=== PATIENT | male | born 1960 | race Caucasian/White ===

== ENCOUNTER 2023-03-15 10:15 | Outpatient (RCR) | payer BC, SELFPAY | END 2023-03-15 23:59 | disposition home or self-care (01) | LOC: RST 10:15 | PROVIDERS: ATTENDING PHYSICIAN Family Medicine | DX: I69.320 Aphasia following cerebral infarction (principal); I69.398 Other sequelae of cerebral infarction; Z74.01 Bed confinement status; I67.9 Cerebrovascular disease, unspecified | CPT/HCPCS: 92507; 92523; 97110; 97112; 97162; 97167; 97530; 97535 ==

== ENCOUNTER → 2023-03-28 12:32 | Outpatient (REF) | payer BC, SELFPAY | LOC: REG 12:32 | PROVIDERS: ATTENDING PHYSICIAN Nurse Practitioner Family; FAMILY PHYSICIAN Family Medicine; REFERRING PHYSICIAN Internal Medicine Cardiovascular Disease | DX: I63.9 Cerebral infarction, unspecified (principal) | CPT/HCPCS: 36415 ==

== ENCOUNTER 2023-04-14 12:54 | Outpatient (RCR) | payer BC, SELFPAY | END 2023-04-14 23:59 | disposition home or self-care (01) | LOC: RST 12:54 | PROVIDERS: ATTENDING PHYSICIAN Family Medicine | DX: I69.320 Aphasia following cerebral infarction (principal); I69.398 Other sequelae of cerebral infarction; Z73.6 Limitation of activities due to disability | CPT/HCPCS: 92507; 97110; 97112; 97530; 97535 ==

== ENCOUNTER 2023-05-11 14:20 | Outpatient (RCR) | payer BC, SELFPAY | END 2023-05-11 23:59 | disposition home or self-care (01) | LOC: RST 14:20 | PROVIDERS: ATTENDING PHYSICIAN Family Medicine | DX: I69.320 Aphasia following cerebral infarction (principal); I69.351 Hemiplegia and hemiparesis following cerebral infarction affecting right dominant side; Z73.6 Limitation of activities due to disability | CPT/HCPCS: 92507; 97110; 97530; 97535 ==

== ENCOUNTER → 2023-06-11 07:36 | Outpatient (REF) | payer BC, SELFPAY ==
[2023-06-11 08:38] LABS: % Basophils 0.9 % (0-2); % Eosinophils 2.2 % (0-6); % Immature Granulocytes 0.2 % (0-0.5); % Lymphocytes 26.1 % (20.5-51.1); % Monocytes 15.5 % (1.7-9.3); % Neutrophils 55.1 % (42.2-75.2); Absolute Eosinophils 0.1 10^3/uL (0-0.7); Absolute Lymphocytes 1.2 10^3/uL (1.2-3.4); Absolute Monocytes 0.7 10^3/uL (0.1-0.6); Absolute Neutrophils 2.5 10^3/uL (1.4-6.5); Hematocrit 42.1 % (39.0-52.0); Hemoglobin 14.5 g/dL (13.0-18.0); Mean Corp Hgb Conc. 34.4 g/dL (33.0-37.0); Mean Corpuscular Hgb 30.9 pg (27.0-31.0); Mean Corpuscular Volume 89.6 fL (80.0-94.0); Mean Platelet Volume 9.3 fL (7.4-10.4); Nucleated Red Blood Cells % 0 % (-); Platelet Count 198 10^3/uL (130-400); Red Cell Dist. Width 14.6 % (11.5-14.5); White Blood Cell Count 4.5 10^3/uL (4.8-10.8)
[2023-06-11 08:52] LABS: ALT (SGPT) 65 U/L (0-50); AST (SGOT) 37 U/L (17-59); Alkaline Phosphatase 78 U/L (38-126); Blood Urea Nitrogen 19 mg/dl (9-20); Calcium 9.6 mg/dl (8.4-10.2); Carbon Dioxide 30 mmol/L (22-30); Chloride 106 mmol/L (98-107); Glucose 101 mg/dl (70-99); Potassium 4.4 mmol/L (3.5-5.1); Sodium 138 mmol/L (135-145); Total Bilirubin 0.6 mg/dl (0.2-1.3); Total Protein 6.6 g/dl (6.3-8.2); eGFR > 60.00
== END ==
LOC: REG 07:36
PROVIDERS: ATTENDING PHYSICIAN Nurse Practitioner Family; FAMILY PHYSICIAN Family Medicine; REFERRING PHYSICIAN Internal Medicine Cardiovascular Disease
DX: I63.512 Cerebral infarction due to unspecified occlusion or stenosis of left middle cerebral artery (principal)
CPT/HCPCS: 36415; 80053; 85025

== ENCOUNTER 2023-06-13 09:53 | Outpatient (RCR) | payer BC, SELFPAY | END 2023-06-13 23:59 | disposition home or self-care (01) | LOC: RST 09:53 | PROVIDERS: ATTENDING PHYSICIAN Family Medicine | DX: I69.320 Aphasia following cerebral infarction (principal); I69.898 Other sequelae of other cerebrovascular disease; R53.1 Weakness; R25.1 Tremor, unspecified | CPT/HCPCS: 92507; 97110; 97530; 97535; 97537 ==

== ENCOUNTER → 2023-07-14 08:06 | Outpatient (REF) | payer BC, SELFPAY | LOC: RCS 08:06 | PROVIDERS: ATTENDING PHYSICIAN Internal Medicine Cardiovascular Disease; FAMILY PHYSICIAN Family Medicine | DX: I42.9 Cardiomyopathy, unspecified (principal) | CPT/HCPCS: 93306 ==

== ENCOUNTER 2023-07-15 09:51 | Outpatient (RCR) | payer BC, SELFPAY | END 2023-07-15 23:59 | disposition home or self-care (01) | LOC: RST 09:51 | PROVIDERS: ATTENDING PHYSICIAN Family Medicine | DX: I69.320 Aphasia following cerebral infarction (principal); Z73.6 Limitation of activities due to disability | CPT/HCPCS: 92507; 97110; 97161; 97530; 97535 ==

== ENCOUNTER 2023-07-28 09:51 | Outpatient (RCR) | payer OTHER, SELFPAY | END 2023-07-28 23:59 | disposition home or self-care (01) | LOC: RPT 09:51 | PROVIDERS: ATTENDING PHYSICIAN Nurse Practitioner Family; FAMILY PHYSICIAN Family Medicine | DX: I69.398 Other sequelae of cerebral infarction (principal); Z73.6 Limitation of activities due to disability | CPT/HCPCS: 97110; 97112 ==

== ENCOUNTER 2023-08-11 09:18 | Outpatient (RCR) | payer OTHER, SELFPAY | END 2023-08-11 23:59 | disposition home or self-care (01) | LOC: RST 09:18 | PROVIDERS: ATTENDING PHYSICIAN Family Medicine | DX: I69.320 Aphasia following cerebral infarction (principal); Z73.6 Limitation of activities due to disability | CPT/HCPCS: 92507; 92523; 97167; 97530; 97535 ==

== ENCOUNTER 2023-09-12 09:38 | Outpatient (RCR) | payer OTHER, SELFPAY | END 2023-09-12 23:59 | disposition home or self-care (01) | LOC: RST 09:38 | PROVIDERS: ATTENDING PHYSICIAN Family Medicine | DX: I69.320 Aphasia following cerebral infarction (principal); Z73.6 Limitation of activities due to disability | CPT/HCPCS: 92507; 97530; 97535; 97537 ==

== ENCOUNTER 2023-10-13 10:23 | Outpatient (RCR) | payer OTHER, SELFPAY | END 2023-10-13 23:59 | disposition home or self-care (01) | LOC: RST 10:23 | PROVIDERS: ATTENDING PHYSICIAN Family Medicine | DX: I69.320 Aphasia following cerebral infarction (principal); Z73.6 Limitation of activities due to disability | CPT/HCPCS: 92507; 97110; 97530; 97537 ==

== ENCOUNTER 2023-11-10 06:52 | Outpatient (RCR) | payer OTHER, SELFPAY | END 2023-11-10 23:59 | disposition home or self-care (01) | LOC: RST 06:52 | PROVIDERS: ATTENDING PHYSICIAN Family Medicine | DX: I69.398 Other sequelae of cerebral infarction (principal); Z73.6 Limitation of activities due to disability; I69.320 Aphasia following cerebral infarction | CPT/HCPCS: 92507; 97530; 97535 ==

== ENCOUNTER 2023-12-15 11:00 | Outpatient (RCR) | payer OTHER, SELFPAY | END 2023-12-15 23:59 | disposition home or self-care (01) | LOC: RST 11:00 | PROVIDERS: ATTENDING PHYSICIAN Family Medicine | DX: I69.320 Aphasia following cerebral infarction (principal); Z73.6 Limitation of activities due to disability | CPT/HCPCS: 92507; 97530; 97537 ==

== ENCOUNTER 2023-12-20 07:55 | Outpatient (RCR) | payer OTHER, SELFPAY | END 2023-12-20 23:59 | disposition home or self-care (01) | LOC: RPT 07:55 | PROVIDERS: ATTENDING PHYSICIAN Nurse Practitioner Family; FAMILY PHYSICIAN Family Medicine | DX: I69.398 Other sequelae of cerebral infarction (principal); R53.1 Weakness ==

== ENCOUNTER 2024-01-11 07:54 | Outpatient (RCR) | payer OTHER, SELFPAY | END 2024-01-11 23:59 | disposition home or self-care (01) | LOC: RST 07:54 | PROVIDERS: ATTENDING PHYSICIAN Family Medicine | DX: I69.320 Aphasia following cerebral infarction (principal); Z73.6 Limitation of activities due to disability | CPT/HCPCS: 92507; 97530 ==

== ENCOUNTER 2024-02-14 06:29 | Outpatient (RCR) | payer OTHER, SELFPAY | END 2024-02-14 23:59 | disposition home or self-care (01) | LOC: RST 06:29 | PROVIDERS: ATTENDING PHYSICIAN Family Medicine | DX: I69.320 Aphasia following cerebral infarction (principal); Z73.6 Limitation of activities due to disability; I69.398 Other sequelae of cerebral infarction | CPT/HCPCS: 92507; 97530; 97535 ==

== ENCOUNTER 2024-03-15 07:12 | Outpatient (RCR) | payer OTHER, SELFPAY | END 2024-03-15 23:59 | disposition home or self-care (01) | LOC: RST 07:12 | PROVIDERS: ATTENDING PHYSICIAN Family Medicine | DX: I69.320 Aphasia following cerebral infarction (principal); Z73.6 Limitation of activities due to disability | CPT/HCPCS: 92507; 97530; 97535 ==

== ENCOUNTER 2024-04-12 06:14 | Outpatient (RCR) | payer OTHER, SELFPAY | END 2024-04-12 23:59 | disposition home or self-care (01) | LOC: RST 06:14 | PROVIDERS: ATTENDING PHYSICIAN Family Medicine | DX: I69.320 Aphasia following cerebral infarction (principal); Z73.6 Limitation of activities due to disability; I69.390 Apraxia following cerebral infarction | CPT/HCPCS: 92507; 97530 ==

== ENCOUNTER 2024-05-07 07:16 | Outpatient (RCR) | payer OTHER, SELFPAY | END 2024-05-07 23:59 | disposition home or self-care (01) | LOC: RST 07:16 | PROVIDERS: ATTENDING PHYSICIAN Family Medicine | DX: I69.320 Aphasia following cerebral infarction (principal); Z73.6 Limitation of activities due to disability; I69.390 Apraxia following cerebral infarction | CPT/HCPCS: 92507; 97530 ==

== ENCOUNTER 2024-06-07 06:44 | Outpatient (RCR) | payer OTHER, SELFPAY | END 2024-06-07 23:59 | disposition home or self-care (01) | LOC: RST 06:44 | PROVIDERS: ATTENDING PHYSICIAN Family Medicine | DX: I69.320 Aphasia following cerebral infarction (principal); I69.390 Apraxia following cerebral infarction; Z73.6 Limitation of activities due to disability | CPT/HCPCS: 92507 ==

== ENCOUNTER 2024-07-12 07:15 | Outpatient (RCR) | payer OTHER, SELFPAY | END 2024-07-12 23:59 | disposition home or self-care (01) | LOC: RST 07:15 | PROVIDERS: ATTENDING PHYSICIAN Family Medicine | DX: I69.320 Aphasia following cerebral infarction (principal); I69.390 Apraxia following cerebral infarction; Z73.6 Limitation of activities due to disability | CPT/HCPCS: 92507 ==

== ENCOUNTER 2024-08-09 08:06 | Outpatient (RCR) | payer OTHER, SELFPAY | END 2024-08-09 23:59 | disposition home or self-care (01) | LOC: RST 08:06 | PROVIDERS: ATTENDING PHYSICIAN Family Medicine | DX: I69.320 Aphasia following cerebral infarction (principal); I69.390 Apraxia following cerebral infarction; Z73.6 Limitation of activities due to disability | CPT/HCPCS: 92507 ==

== ENCOUNTER 2024-09-10 10:12 | Outpatient (RCR) | payer OTHER, SELFPAY | END 2024-09-10 23:59 | disposition home or self-care (01) | LOC: RST 10:12 | PROVIDERS: ATTENDING PHYSICIAN Family Medicine | DX: I69.320 Aphasia following cerebral infarction (principal); I69.390 Apraxia following cerebral infarction; Z73.6 Limitation of activities due to disability | CPT/HCPCS: 92507 ==

== ENCOUNTER 2024-10-02 09:26 | Outpatient (RCR) | payer OTHER, SELFPAY | END 2024-10-02 23:59 | disposition home or self-care (01) | LOC: RST 09:26 | PROVIDERS: ATTENDING PHYSICIAN Family Medicine | DX: I69.320 Aphasia following cerebral infarction (principal); I69.390 Apraxia following cerebral infarction; Z73.6 Limitation of activities due to disability | CPT/HCPCS: 92507 ==

== ENCOUNTER 2024-11-08 09:11 | Outpatient (RCR) | payer OTHER, SELFPAY | END 2024-11-08 23:59 | disposition home or self-care (01) | LOC: RST 09:11 | PROVIDERS: ATTENDING PHYSICIAN Family Medicine | DX: I69.320 Aphasia following cerebral infarction (principal); I69.390 Apraxia following cerebral infarction; Z73.6 Limitation of activities due to disability | CPT/HCPCS: 92507 ==

== ENCOUNTER 2024-12-05 06:52 | Outpatient (RCR) | payer OTHER, SELFPAY | END 2024-12-05 23:59 | disposition home or self-care (01) | LOC: RST 06:52 | PROVIDERS: ATTENDING PHYSICIAN Family Medicine | DX: I69.320 Aphasia following cerebral infarction (principal); I69.390 Apraxia following cerebral infarction; Z73.6 Limitation of activities due to disability | CPT/HCPCS: 92507 ==

== ENCOUNTER 2025-01-02 06:52 | Outpatient (RCR) | payer OTHER, SELFPAY | END 2025-01-02 23:59 | disposition home or self-care (01) | LOC: RST 06:52 | PROVIDERS: ATTENDING PHYSICIAN Family Medicine | DX: I69.320 Aphasia following cerebral infarction (principal); I69.390 Apraxia following cerebral infarction; Z73.6 Limitation of activities due to disability | CPT/HCPCS: 92507 ==

== ENCOUNTER 2025-01-30 07:03 | Outpatient (RCR) | payer OTHER, SELFPAY | END 2025-01-30 23:59 | disposition home or self-care (01) | LOC: RST 07:03 | PROVIDERS: ATTENDING PHYSICIAN Family Medicine | DX: I69.320 Aphasia following cerebral infarction (principal); I69.390 Apraxia following cerebral infarction; Z73.6 Limitation of activities due to disability | CPT/HCPCS: 92507 ==